=== PATIENT | female | born 2000 | race Caucasian/White ===

== ENCOUNTER 2019-03-08 19:33 | Emergency (ER) | payer BC ==
[~2019-03-08] VITALS: Ht 157.5 cm; Wt 70.5 kg
[2019-03-08 19:43] VITALS: BP 143/82; PULSE 68
[2019-03-08] MEDS ORDERED: NORCO 325 MG-51 TAB PO (20:21)
[2019-03-08 20:42] VITALS: TEMP 98.1
== END 2019-03-08 20:29 | disposition home or self-care (01) ==
LOC: COL.ER 19:33
DX: K08.89 Other specified disorders of teeth and supporting structures (principal)